=== PATIENT | female | born 1990 | race Caucasian/White ===

== ENCOUNTER → 2024-04-26 | Outpatient (CLI) | payer MEDICAID ==
[~2024-04-26] MED LIST: NO HOME MEDS; iohexol 350MG/ML 100ml bottle IV ONE
== END | disposition home or self-care (01) ==
LOC: RAD 16:02
PROVIDERS: ATTEND Student in an Organized Health Care Education/Training Program
DX: T71.193A Asphyxiation due to mechanical threat to breathing due to other causes, assault, initial encounter (principal)
CPT/HCPCS: 70498; Q9967

== ENCOUNTER 2024-05-01 15:57 | Outpatient (CLI) | payer MEDICAID ==
[~2024-05-01] VITALS: Ht 165.1 cm; Wt 77.1 kg
[~2024-05-01 15:57] MED LIST changes: -iohexol 350MG/ML 100ml bottle IV ONE
[2024-05-01 16:28] VITALS: PULSE 76; RESP 14; O2SAT 99
[2024-05-01] MEDS: albuterol 2.5 MG/3 ML nebule NEB PRN (16:38)
[2024-05-01 16:48] VITALS: PULSE 80; RESP 15
== END 2024-05-01 23:59 | disposition home or self-care (01) ==
LOC: RT 15:57
PROVIDERS: ATTEND Student in an Organized Health Care Education/Training Program
DX: R06.02 Shortness of breath (principal); Z82.5 Family history of asthma and other chronic lower respiratory diseases
CPT/HCPCS: 94060; 94760

== ENCOUNTER 2025-03-18 17:04 | Emergency (ER) | payer SELFPAY ==
[~2025-03-18] VITALS: Ht 165.1 cm; Wt 90.6 kg
[2025-03-18 17:06] VITALS: BP 141/89; PULSE 95; RESP 16; TEMP 98.4; O2SAT 99
--- NOTE | 2025-03-18 17:16 | ELECTROCARDIOGRAPH REPORT ---
[facility] Test Date: 2025-03-18 Test Time: 17:14:19 Pat Name: HARRIET GÓMEZ Department: EMERGENCY ROOM Patient ID: [id number] Room: Gender: F Sales Associate Key Holder: : [id number] Requested By: TAHIR DOSHI Order Number: [id number] Reading MD: Dr. Alireza Paiz Measurements Intervals [place] Rate: 80 P: 52 HI: 150 QRS: 18 QRSD: 88 T: 38 QT: 379 QTc: 438 Interpretive Statements Sinus rhythm Probable left atrial enlargement RSR' in V1 or V2, right VCD or RVH Electronically Signed On 03-19-2025 6:49:[address] Alireza Paiz Please click the below link to view image of tracing.
--- NOTE | 2025-03-18 17:37 | RADIOLOGY REPORT ---
CHEST RADIOGRAPH Indication: CP Technique: Single frontal view of the chest was obtained Comparison: None FINDINGS: Lines and Tubes: None Lungs: No focal consolidation. Pleura: No effusion. No pneumothorax. Cardiomediastinal contours: Unremarkable Bones: No acute osseous abnormality. IMPRESSION: 1. No acute cardiopulmonary disease.
[2025-03-18 17:56] LABS: BASOPHILS % (AUTO) 0.2 % (0-1); EOSINOPHILS # (AUTO) 0.4 X10'3 (0-0.9); EOSINOPHILS % (AUTO) 5.4 % (0-6); HEMATOCRIT 38.2 % (35.0-45.0); HEMOGLOBIN 12.7 g/dl (12.0-16.0); LYMPHOCYTES # (AUTO) 2.7 X10'3 (1.1-4.8); LYMPHOCYTES % (AUTO) 38.6 % (21-51); MEAN CORPUSCULAR HGB CONC 33.2 g/dL (33.0-36.5); MEAN CORPUSCULAR VOLUME 87.4 FL (78-98); MEAN PLATELET VOLUME 7.7 FL (7.4-10.4); MONOCYTES # (AUTO) 0.5 X10'3 (0-0.9); MONOCYTES % (AUTO) 7.1 % (2-12); NEUTROPHILS # (AUTO) 3.4 X10'3 (1.8-7.7); NEUTROPHILS % (AUTO) 48.7 % (42-75); PLATELET COUNT 235 X10'3 (140-440); RED BLOOD COUNT 4.37 X10'6 (4.20-5.60); RED CELL DISTRIBUTION WIDTH 15.3 % (11.5-14.5); WHITE BLOOD COUNT 6.9 X10'3 (4.5-11.0)
--- NOTE | 2025-03-18 17:59 | Physician Documentation ---
History of Present Illness ~ Chief Complaint: Chest Pain Stated Complaint: CP SINCE THIS MORNING HPI This 35-year-old female presents with one day of substernal nonradiating chest pain described as burning pressure, patient reports no aggravating or alleviating factors. Patient reports no shortness of breath or vomiting. Patient reports no cardiac history. Medication Reconciliation Allergies: Coded Allergies: No Known Allergies (Unverified , 04/29/19) Miscellaneous Medications Home Med List (No Home Medications), (Reported) Review of Systems ROS As stated above in the HPI, otherwise all systems are reviewed and negative. Physical Exam Vital Signs: Temperature: 98.4, Source: Oral, Heart Rate: 95, Respiratory Rate: 16, BP: 141/89, Pulse Oximetry: 99, Weight: 90.600 Oxygen Flow Rate: 0 Physical Exam VITALS: Reviewed and as above. GENERAL: Alert, nontoxic appearing, no apparent distress. RESPIRATORY: No increased work of breathing, no respiratory distress, speaking in full clear sentences, clear lung sounds in all [place] CV: Regular rate and murmur Progress Results/Orders Results/Orders Vital Signs 03/18/25 17:06 Temp 98.4 Pulse 95 Resp 16 B/P (MAP) 141/89 Pulse Ox 99 O2 Flow Rate 0 Laboratory Tests Test 03/18/25 17:34 White Blood Count 6.9 Red Blood Count 4.37 Hemoglobin 12.7 Hematocrit 38.2 Mean Corpuscular Volume 87.4 Mean Corpuscular Hemoglobin 29.0 Mean Corpuscular Hemoglobin Concent 33.2 Red Cell Distribution Width 15.3 H Platelet Count 235 Mean Platelet Volume 7.7 Neutrophils (%) (Auto) 48.7 Lymphocytes (%) (Auto) 38.6 Monocytes (%) (Auto) 7.1 Eosinophils (%) (Auto) 5.4 Basophils (%) (Auto) 0.2 Neutrophils # (Auto) 3.4 Lymphocytes # (Auto) 2.7 Monocytes # (Auto) 0.5 Eosinophils # (Auto) 0.4 Basophils # (Auto) 0.0 CBC Comment Sodium Level 141 Potassium Level 3.6 Chloride Level 105 Carbon Dioxide Level 28.4 Anion Gap 8 Blood Urea Nitrogen 10 Creatinine 0.64 Estimated GFR/1.73 m2 > 90 BUN/Creatinine Ratio 15.6 Glucose Level 92 Calcium Level 8.5 Total Bilirubin 0.3 Aspartate Amino Transf (AST/SGOT) 15 Alanine Aminotransferase (ALT/SGPT) 20 Alkaline Phosphatase 62 Troponin I High Sensitivity < 4 L Troponin I High Sens Percent Delta Troponin I Hi Sens Absolute Change Pro-B-Type Natriuretic Peptide 110 Total Protein 6.5 Albumin 3.6 Globulin 2.9 Albumin/Globulin Ratio 1.2 Chemistry Comments Medical Decision Making Findings MSE performed in triage and patient returned to ED lobby by nursing staff while waiting placement in available ED room while waiting for room patient appears to have eloped Differential Dx:Considerations: Include: angina, chest wall pain, cholelithiasis, gastritis, myocardial infarction, pleuritis, pancreatitis, pneumonia Departure Disposition: LEFT AWOL/ELOPED Impression: Primary Impression: Chest pain Qualified Codes: R07.9 - Chest pain, unspecified Referrals: NO PRIMARY CARE PROVIDER (PCP) Signature Scribe Signature: No scribe Attestation: The note accurately reflects work and decisions made by me.DILLON Pleitez 23:34 NAVEEN PARKER March 18, 2025 17:59
[2025-03-18 18:13] LABS: ALANINE AMINOTRANSFERASE 20 U/L (12-78); ALBUMIN 3.6 G/DL (3.4-5.0); ALBUMIN/GLOBULIN RATIO 1.2 (1.1-1.5); ALKALINE PHOSPHATASE 62 IU/L (46-116); ANION GAP 8 (8-16); ASPARTATE AMINO TRANSFERASE 15 U/L (10-37); BILIRUBIN,TOTAL 0.3 MG/DL (0.1-1.0); BLOOD UREA NITROGEN 10 MG/DL (7-18); BUN/CREATININE RATIO 15.6 (10.0-20.0); CALCIUM 8.5 MG/DL (8.5-10.1); CHLORIDE 105 MMOL/L (99-107); CREATININE 0.64 MG/DL (0.40-0.90); GLUCOSE 92 MG/DL (70-104); POTASSIUM 3.6 MMOL/L (3.5-5.1); SODIUM 141 MMOL/L (135-145); TOTAL CARBON DIOXIDE 28.4 MMOL/L (24-32); TOTAL PROTEIN 6.5 G/DL (6.4-8.2); eCRCL 108 ML/MIN; eGFR > 90 ML/MIN
[2025-03-18 18:19] LABS: PRO BRAIN NATRIURETIC PEPTIDE 110 PG/ML (0-125)
== END 2025-03-18 22:36 | disposition left against medical advice (07) ==
LOC: ER 17:05
DX: R07.89 Other chest pain (principal)
CPT/HCPCS: 36415; 71045; 80053; 83880; 84484; 85025; 93005; 99285